=== PATIENT | female | born 1945 ===

== ENCOUNTER 2018-01-17 17:27 | Emergency (ER) | payer MEDICAID, MEDICARE ==
--- NOTE | 2018-01-17 17:46 | Emergency Department Report ---
HPI - General Time Seen by Provider: 01/17/18 17:40 - HPI HPI: 72-year-old female presents to the emergency department via [facility] as a cardiac arrest. EMS says that their call came in at 1423. At this point the patient was a passenger in a car when she went unresponsive and EMS was called by the route delivery driver. The only history we know of is that the patient has a history of diabetes and an Accu-Chek done was 127. EMS was unable to place an IO or get peripheral vein access and therefore no medications were given. They were doing chest compressions and giving bag valve ventilation through an IGel tube. EMS is that the patient was in asystole for the duration of their transportation. The patient presented pulseless to the emergency department. ED Review of Systems ROS: Stated complaint: CARDIAC ARREST Other details as noted in HPI Comment: Unobtainable due to pts medical conditions Physical Exam - Physical Exam Physical Exam: GENERAL: Patient is ill-appearing and unresponsive. HENT: Normocephalic. Atraumatic. Patient has moist mucous membranes. IGel tube in place. EYES: Pupils are fixed and dilated. NECK: Supple. Trachea appears midline. CHEST/LUNGS: There are no spontaneous respirations. There are some breath sounds heard bilaterally with bag valve ventilation. HEART/CARDIOVASCULAR: There are no spontaneous heart sounds. ABDOMEN: Abdomen is soft. Morbidly obese habitus. SKIN: Skin is cool but dry. NEURO: Unresponsive. Does not withdraw to painful stimuli. Does not follow any commands. MUSCULOSKELETAL: There is no obvious deformity. There is no evidence of acute injury. No palpable femoral or radial pulses. ED Medical Decision Making - Medical Decision Making The patient came in as a cardiac arrest with the EMS call starting at 1523. EMS says that they have been working on her for about 30 minutes prior to arrival here where she was still in PEA and/or asystole. Since there was some bilateral breath sounds heard with bag valve ventilation and the IGel, we did not remove it but had planned to change to an ET tube if there was return of spontaneous circulation. Chest compressions were continued immediately upon arrival. The patient was placed on the monitor and appeared to be in asystole. We were able to obtain a 20-gauge peripheral line to the right AC. The patient received a total of 4 doses of epinephrine, one of sodium bicarbonate, 1 of calcium. Each pulse and rhythm check showed asystole and sometimes it appeared like very slow PEA with a rate of 20, but never did she have return of spontaneous circulation. After the fourth round of ACLS protocol I took the bedside ultrasound and the patient's heart which had absolutely no movement or squeeze. At this point it was over 1 hour since the EMS call and at least 45 minutes since the patient was receiving ACLS protocol. She had fixed and dilated pupils, no spontaneous heart or breath sounds. Time of was called. The patient's family eventually came to the hospital and they were told of the patient's expiration and given an opportunity to see the patient. - Differential Diagnosis dysrythmia, PE, HI, CVA Critical Care Time: Yes Critical care time in (mins) excluding proc time.: 15 Critical care attestation.: If time is entered above; I have spent that time in minutes in the direct care of this critically ill patient, excluding procedure time. Critical care time was spent on this patient and doing the initial evaluation and supervision of ACLS protocol as well as telling the family of the patient's expiration. Critical Care Time: 15 minutes ED Disposition Clinical Impression: Cardiac arrest Disposition: DC-20 Is pt being admited?: No Time of Disposition: 18:46
[2018-01-17] MEDS ORDERED: CALCIUM CHLORIDE IV ONE (23:00)
[2018-01-17] MEDS ORDERED: SODIUM BICARBONATE IV ONE (23:00)
[2018-01-17] MEDS ORDERED: ADRENALIN ONE (23:00)
== END 2018-01-17 23:23 ==
LOC: EDBD → ED 17:27
DX: I46.9 Cardiac arrest, cause unspecified (principal)
CPT/HCPCS: 82962; 92950; 99285; J0171